=== PATIENT | female | born 1965 | race Asian ===

== ENCOUNTER 2019-03-09 13:04 | Emergency (ER) | payer OTHER, SELFPAY ==
[2019-03-09] VITALS (7 sets, daily range): BP systolic 111–126; BP diastolic 56–80; PULSE 51–58; RESP 14–19; TEMP 36.1; O2SAT 96–100; BMI 32.0
[2019-03-09 14:17] LABS: Add Manual Diff / Slide Review NO; Basophils Absolute Auto 0 /uL (0-100); Basophils Percent Auto 0.7 % (0-2); Eosinophils Absolute Auto 0 /uL (0-450); Eosinophils Percent Auto 0.6 % (2-4); Hematocrit 40.9 % (36-46); Hemoglobin 14.2 g/dL (12.0-16.0); Lymphocytes Absolute Auto 1000 /uL (1100-4500); Lymphocytes Percent Auto 16.7 % (25-40); Mean Corpuscular HGB Conc 34.6 % (30-36); Mean Corpuscular Hemoglobin 30.4 PG (26-34); Mean Corpuscular Volume 87.9 fL (80-100); Monocytes Absolute Auto 300 /uL (0-900); Monocytes Percent Auto 4.3 % (3-14); Neutrophils Absolute Auto 4900 /uL (1500-7000); Neutrophils Percent Auto 77.7 % (50-75); Platelet Count 283 X10^3/uL (150-400); Red Blood Cell Count 4.66 X10^6/uL (4.0-5.2); Red Cell Distribution Width 13.5 % (11.6-14.8); White Blood Cell Count 6.3 X10^3/uL (4.5-11.0)
[2019-03-09 14:27] LABS: Blood Urea Nitrogen 15 mg/dL (7-17); Calcium 9.5 mg/dL (8.4-10.2); Carbon Dioxide 28 mmol/L (22-32); Chloride 105 mmol/L (98-107); Estimated Glomerular Filt Rate > 60.0 mL/min (>60); Glucose 110 mg/dL (70-100); HEMOLYSIS < 15 (0-50); Potassium 4.1 mmol/L (3.4-5.1); Sodium 142 mmol/L (137-145)
[2019-03-09 14:40] LABS: Troponin I < 0.012 ng/mL (0.01-0.034)
[2019-03-09 15:09] LABS: Bacteria Urine None Seen; RBC Urine None Seen (0-5/HPF); WBC Urine None Seen (0-5/HPF)
[2019-03-09 15:12] LABS: Appearance Urine UA CLEAR; Bilirubin Urine UA NEGATIVE (NEGATIVE); Color Urine UA YELLOW; Glucose Urine UA NEGATIVE (Negative); Ketones Urine UA NEGATIVE (NEGATIVE); Leukocyte Esterase Urine UA NEGATIVE (NEGATIVE); Nitrite Urine UA NEGATIVE (Negative); Occult Blood Urine UA TRACE-INTACT (Negative); Protein Urine UA NEGATIVE (Negative); Urobilinogen Urine UA 0.2 E.U./dL (0.2); pH Urine UA 6.5 (4.5-8.0)
[2019-03-09 15:31] LABS: Culture Indicated Urine Cult Not Indicated
--- NOTE | 2019-03-09 16:27 | DI.RAD.S_ITS ---
PROCEDURE: XR CHEST 1V INDICATIONS: dizziness TECHNIQUE: One view of the chest was acquired. COMPARISON: None. FINDINGS: Surgical changes and devices: None. Lungs and pleura: Lungs are clear. No pleural effusions or pneumothorax. Mediastinum: Mediastinal contours appear normal. Heart size is normal. Bones and chest wall: No suspicious bony lesions. Overlying soft tissues appear unremarkable. IMPRESSION: Portable chest within normal limits. Dictated by: Aldo Hussein M.D. on 03/09/2019 at 16:08 Approved by: Aldo Hussein M.D. on 03/09/2019 at 16:08
--- NOTE | 2019-03-09 16:39 | ED.DIZZY ---
HPI - Dizziness General Chief Complaint: Dizziness Stated Complaint: States earthquake in head, vomitted twice Time Seen by Provider: 03/09/19 16:27 [facility] Social History Smoking Status: Never smoker Social History Smoking Status: Never smoker Exam Initial Vital Signs Initial Vital Signs: Vital Signs Temperature 97.0 F L 03/09/19 13:19 Pulse Rate 58 L 03/09/19 13:19 Respiratory Rate 18 03/09/19 13:19 Blood Pressure 126/79 03/09/19 13:19 Pulse Oximetry 100 03/09/19 13:19 Course Orders Ordered: ED Orders 03/09/19 14:10 Basic Metabolic Panel Stat Complete Blood Count AUTO DIFF Stat Troponin I Stat 03/09/19 15:05 UA Complete [Urinalysis and Microscopic] Stat 03/09/19 16:27 XR chest 1V Stat Vital Signs - 8 hr 03/09/19 13:19 03/09/19 14:41 03/09/19 15:35 Temperature 97.0 F L Pulse Rate 58 L 54 L 51 L Respiratory Rate 18 16 17 Blood Pressure 126/79 Blood Pressure [Left Arm] 124/61 113/56 L Pulse Oximetry 100 98 96 MDM - Dizziness Lab Data Result diagrams: 03/09/19 14:10 03/09/19 14:10 Lab Results 03/09/19 03/09/19 03/09/19 Range/Units 14:10 14:10 15:05 WBC 6.3 (4.5-11.0) X10^3/uL RBC 4.66 (4.0-5.2) X10^6/uL Hgb 14.2 (12.0-16.0) g/dL Hct 40.9 (36-46) % MCV 87.9 (80-100) fL MCH 30.4 (26-34) PG MCHC 34.6 (30-36) % RDW 13.5 (11.6-14.8) % Plt Count 283 (150-400) X10^3/uL Neut % (Auto) 77.7 H (50-75) % Lymph % (Auto) 16.7 L (25-40) % [place] % (Auto) 4.3 (3-14) % Eos % (Auto) 0.6 L (2-4) % Baso % (Auto) 0.7 (0-2) % Neut # (Auto) 4900 (5365-1262) /uL Lymph # (Auto) 1000 L (3130-9249) /uL [place] # (Auto) 300 (0-900) /uL Eos # (Auto) 0 (0-450) /uL Baso # (Auto) 0 (0-100) /uL Sodium 142 (137-145) mmol/L Potassium 4.1 (3.4-5.1) mmol/L Chloride 105 (98-107) mmol/L Carbon Dioxide 28 (22-32) mmol/L BUN 15 (7-17) mg/dL Creatinine 0.60 (0.52-1.04) mg/dL Estimated GFR > 60.0 (>60) mL/min BUN/Creatinine Ratio 25.0 H (6-22) Glucose 110 H (70-100) mg/dL Calcium 9.5 (8.4-10.2) mg/dL Troponin I < 0.012 (0.01-0.034) ng/mL Urine Color Yellow Urine Appearance Clear Urine pH 6.5 (4.5-8.0) Ur Specific [place] 1.020 (1.000-1.035) Urine Protein Negative (Negative) Urine Glucose (UA) Negative (Negative) g/dL Urine Ketones Negative (NEGATIVE) Urine Occult Blood Trace-intact (Negative) Urine Nitrate Negative (Negative) Urine Bilirubin Negative (NEGATIVE) Urine Urobilinogen 0.2 (0.2) E.U./dL Ur Leukocyte Esterase Negative (NEGATIVE) Urine RBC None seen (0-5/HPF) Urine WBC None seen (0-5/HPF) Urine Bacteria None seen (None) Ur Culture Indicated? Cult not indicated
--- NOTE | 2019-03-09 17:06 | ED.DIZZY ---
HPI - Dizziness <VAN Orta - Last Filed: 03/09/19 22:13> General Chief Complaint: Dizziness Stated Complaint: States earthquake in head, vomitted twice Time Seen by Provider: 03/09/19 16:27 Source: patient Mode of arrival: ambulatory Limitations: no limitations History of Present Illness HPI Narrative: 53-year-old healthy female with a history of migraines presents emergency department today complaining of sensations of the ?room spinning? for the past 2 weeks but was worse yesterday and today. States the spinning is worse when she moves her head or changes positions. Today it got bad enough that she vomited twice. She states that at 1 point today she had a little bit of blurred vision in both eyes, however she is feeling much better right now and does not have any visual changes. She denies headaches, neck pain, syncope, facial asymmetry, decreased hearing, sore throat, recent illness, chest pain, shortness of breath, abdominal pain, or change in stool patterns. Related Data Previous Rx's Medication Instructions Recorded meclizine 25 mg PO BID PRN #7 tab 03/09/19 Allergies Allergy/AdvReac Type Severity Reaction Status Date / Time No Known Drug Allergies Allergy Verified 03/09/19 17:06 Review of Systems <VAN Orta - Last Filed: 03/09/19 22:13> Review of Systems REVIEW OF SYSTEMS: GENERAL: Denies fever or chills. HENT: No head trauma, hearing loss or sore throat. EYES: Complains of an episode of blurry vision, see HPI. CARDIOVASCULAR: No chest pain or syncope. RESPIRATORY: No shortness of breath or cough. GASTROINTESTINAL: Complains of vomiting, see HPI. GENITOURINARY: No flank pain or dysuria. MUSCULOSKELETAL: No pain, weakness, or deformities. INTEGUMENTARY: No rash, lesions, or pruritus. NEURO: No numbness, tingling, memory loss, or confusion. Complains of the room spinning, see HPI. PSYCH: No behavior or mood changes. PFSH <VAN Orta - Last Filed: 03/09/19 22:13> Medical History Migraines (Acute) No significant medical problems (Acute) Social History Smoking Status: Never smoker Social History Smoking Status: Never smoker Exam <VAN Orta - Last Filed: 03/09/19 22:13> Initial Vital Signs Initial Vital Signs: Vital Signs Temperature 97.0 F L 03/09/19 13:19 Pulse Rate 58 L 03/09/19 13:19 Respiratory Rate 18 03/09/19 13:19 Blood Pressure 126/79 03/09/19 13:19 Pulse Oximetry 100 03/09/19 13:19 PHYSICAL EXAMINATION: GENERAL: Well groomed, alert, and cooperative. Answers questions promptly and appropriately. Vital signs noted. HENT: Normocephalic, atraumatic. Ear canals patent. TMs intact with crisp light reflex Oral mucosa is pink and moist. Oropharynx slightly erythematous EYES: PERRLA, EOMIs, conjunctiva pink, sclera white, no periorbital swelling. NECK: Full range of motion. No pain to palpation. CARDIOVASCULAR: S1 and S2 sounds normal. Regular rate and rhythm, no murmurs, clicks, or bruits. No pedal edema. RESPIRATORY: Normal respiratory rate, trachea midline, airway patent. No stridor, nasal flaring or accessory muscle use. Lungs are clear in all youssef without wheeze, rhonchi, or crackles. GASTROINTESTINAL: Bowel sounds normoactive. Abdomen is soft and non-tender. No organomegaly. MUSCULOSKELETAL: Normal gait and coordination. Equal tone and mass bilaterally. EXTREMITIES: CMS intact. Moves all extremities. SKIN: Warm, dry, soft, appropriate color for ethnicity. No lesions, rashes, or wounds. NEURO: Alert and Oriented X 3. CNII-XIII intact. NIH score 0. Good coordination. No ataxia, or sensory deficits, or cognitive issues. After administration of meclizine, patient was able to walk without difficulty or increased dizziness. Right-sided Hallpike's maneuver revealed increased symptoms and horizontal right ordered nystagmus. PSYCH: Appropriate affect and mood. <Mayelin Triana DO - Last Filed: 03/12/19 18:42> Initial Vital Signs Initial Vital Signs: Vital Signs Temperature 97.0 F L 03/09/19 13:19 Pulse Rate 58 L 03/09/19 13:19 Respiratory Rate 18 03/09/19 13:19 Blood Pressure 126/79 03/09/19 13:19 Pulse Oximetry 100 03/09/19 13:19 Course <VAN Orta - Last Filed: 03/09/19 22:13> Course Narrative: Patient's symptoms significantly improved after administration of meclizine, reported decreased ?room spinning ? and decreased nausea. Patient stated she would like to go home. Orders Ordered: Discontinued Medications Sodium Chloride (Normal Saline 0.9%) 1,000 mls @ 1,000 mls/hr IV BOLUS ONE Stop: 03/09/19 18:05 Last Admin: 03/09/19 17:21 Dose: Not Given Meclizine HCl (Antivert) 50 mg PO NOW ONE Stop: 03/09/19 17:07 Last Admin: 03/09/19 17:20 Dose: 50 mg Consultations Consultation #1: Patient staffed with Dr. triana. Vital Signs - 8 hr 03/09/19 14:41 03/09/19 15:35 03/09/19 16:30 Pulse Rate 54 L 51 L 58 L Respiratory Rate 16 17 15 Blood Pressure Blood Pressure [Left Arm] 124/61 113/56 L 115/72 Pulse Oximetry 98 96 98 03/09/19 17:00 03/09/19 18:00 03/09/19 18:29 Pulse Rate 58 L 51 L 55 L Respiratory Rate 14 16 19 Blood Pressure 113/73 Blood Pressure [Left Arm] 111/80 113/73 Pulse Oximetry 98 99 96 <Mayelin Triana DO - Last Filed: 03/12/19 18:42> Orders Ordered: Discontinued Medications Sodium Chloride (Normal Saline 0.9%) 1,000 mls @ 1,000 mls/hr IV BOLUS ONE Stop: 03/09/19 18:05 Last Admin: 03/09/19 17:21 Dose: Not Given Meclizine HCl (Antivert) 50 mg PO NOW ONE Stop: 03/09/19 17:07 Last Admin: 03/09/19 17:20 Dose: 50 mg Vital Signs - 8 hr 03/09/19 14:41 03/09/19 15:35 03/09/19 16:30 Pulse Rate 54 L 51 L 58 L Respiratory Rate 16 17 15 Blood Pressure Blood Pressure [Left Arm] 124/61 113/56 L 115/72 Pulse Oximetry 98 96 98 03/09/19 17:00 03/09/19 18:00 03/09/19 18:29 Pulse Rate 58 L 51 L 55 L Respiratory Rate 14 16 19 Blood Pressure 113/73 Blood Pressure [Left Arm] 111/80 113/73 Pulse Oximetry 98 99 96 MDM - Dizziness <VAN Orta - Last Filed: 03/09/19 22:13> Medical Records Attestation: I reviewed the patient's medical records. Lab Data Attestation: I reviewed the patient's lab results. Result diagrams: 03/09/19 14:10 03/09/19 14:10 Lab Results 03/09/19 03/09/19 03/09/19 Range/Units 14:10 14:10 15:05 WBC 6.3 (4.5-11.0) X10^3/uL RBC 4.66 (4.0-5.2) X10^6/uL Hgb 14.2 (12.0-16.0) g/dL Hct 40.9 (36-46) % MCV 87.9 (80-100) fL MCH 30.4 (26-34) PG MCHC 34.6 (30-36) % RDW 13.5 (11.6-14.8) % Plt Count 283 (150-400) X10^3/uL Neut % (Auto) 77.7 H (50-75) % Lymph % (Auto) 16.7 L (25-40) % [place] % (Auto) 4.3 (3-14) % Eos % (Auto) 0.6 L (2-4) % Baso % (Auto) 0.7 (0-2) % Neut # (Auto) 4900 (1767-2987) /uL Lymph # (Auto) 1000 L (6846-3047) /uL [place] # (Auto) 300 (0-900) /uL Eos # (Auto) 0 (0-450) /uL Baso # (Auto) 0 (0-100) /uL Sodium 142 (137-145) mmol/L Potassium 4.1 (3.4-5.1) mmol/L Chloride 105 (98-107) mmol/L Carbon Dioxide 28 (22-32) mmol/L BUN 15 (7-17) mg/dL Creatinine 0.60 (0.52-1.04) mg/dL Estimated GFR > 60.0 (>60) mL/min BUN/Creatinine Ratio 25.0 H (6-22) Glucose 110 H (70-100) mg/dL Calcium 9.5 (8.4-10.2) mg/dL Troponin I < 0.012 (0.01-0.034) ng/mL Urine Color Yellow Urine Appearance Clear Urine pH 6.5 (4.5-8.0) Ur Specific [place] 1.020 (1.000-1.035) Urine Protein Negative (Negative) Urine Glucose (UA) Negative (Negative) g/dL Urine Ketones Negative (NEGATIVE) Urine Occult Blood Trace-intact (Negative) Urine Nitrate Negative (Negative) Urine Bilirubin Negative (NEGATIVE) Urine Urobilinogen 0.2 (0.2) E.U./dL Ur Leukocyte Esterase Negative (NEGATIVE) Urine RBC None seen (0-5/HPF) Urine WBC None seen (0-5/HPF) Urine Bacteria None seen (None) Ur Culture Indicated? Cult not indicated Imaging Data Chest Xr : Radiologist's impression: [place] [address] XRay Report Signed Patient: Ghislaine Maya VMR#: [id number] : 1965Acct:[id number] Age/Sex: 53 / FDate of Service: 03/09/19 Loc: ED Accession Number: [id number] Procedure: XR chest 1V Ordering Provider: Mayelin Triana D.O. PROCEDURE: XR CHEST 1V INDICATIONS: dizziness TECHNIQUE: One view of the chest was acquired. COMPARISON: None. FINDINGS: Surgical changes and devices: None. Lungs and pleura: Lungs are clear. No pleural effusions or pneumothorax. Mediastinum: Mediastinal contours appear normal. Heart size is normal. Bones and chest wall: No suspicious bony lesions. Overlying soft tissues appear unremarkable. IMPRESSION: Portable chest within normal limits. Dictated by: Aldo Hussein M.D. on 03/09/2019 at 16:08 Approved by: Aldo Hussein M.D. on 03/09/2019 at 16:08 [facility] Narrative Medical decision making narrative: Suspect peripheral vertigo (less likely central vertigo due to tumor or brain bleed)aAs patient's symptoms decreased with administration of meclizine, labs were within normal limits, she exhibited a normal neuro exam, and Ken-Hallpike maneuver was positive. Strict return precautions were given to patient and follow-up instructions discussed. Less likely cardiac due to negative lab work, description of symptoms and exam. <Mayelin Triana, DO - Last Filed: 03/12/19 18:42> Lab Data Lab Results 03/09/19 03/09/19 03/09/19 Range/Units 14:10 14:10 15:05 WBC 6.3 (4.5-11.0) X10^3/uL RBC 4.66 (4.0-5.2) X10^6/uL Hgb 14.2 (12.0-16.0) g/dL Hct 40.9 (36-46) % MCV 87.9 (80-100) fL MCH 30.4 (26-34) PG MCHC 34.6 (30-36) % RDW 13.5 (11.6-14.8) % Plt Count 283 (150-400) X10^3/uL Neut % (Auto) 77.7 H (50-75) % Lymph % (Auto) 16.7 L (25-40) % [place] % (Auto) 4.3 (3-14) % Eos % (Auto) 0.6 L (2-4) % Baso % (Auto) 0.7 (0-2) % Neut # (Auto) 4900 (2859-2778) /uL Lymph # (Auto) 1000 L (3652-2940) /uL [place] # (Auto) 300 (0-900) /uL Eos # (Auto) 0 (0-450) /uL Baso # (Auto) 0 (0-100) /uL Sodium 142 (137-145) mmol/L Potassium 4.1 (3.4-5.1) mmol/L Chloride 105 (98-107) mmol/L Carbon Dioxide 28 (22-32) mmol/L BUN 15 (7-17) mg/dL Creatinine 0.60 (0.52-1.04) mg/dL Estimated GFR > 60.0 (>60) mL/min BUN/Creatinine Ratio 25.0 H (6-22) Glucose 110 H (70-100) mg/dL Calcium 9.5 (8.4-10.2) mg/dL Troponin I < 0.012 (0.01-0.034) ng/mL Urine Color Yellow Urine Appearance Clear Urine pH 6.5 (4.5-8.0) Ur Specific [place] 1.020 (1.000-1.035) Urine Protein Negative (Negative) Urine Glucose (UA) Negative (Negative) g/dL Urine Ketones Negative (NEGATIVE) Urine Occult Blood Trace-intact (Negative) Urine Nitrate Negative (Negative) Urine Bilirubin Negative (NEGATIVE) Urine Urobilinogen 0.2 (0.2) E.U./dL Ur Leukocyte Esterase Negative (NEGATIVE) Urine RBC None seen (0-5/HPF) Urine WBC None seen (0-5/HPF) Urine Bacteria None seen (None) Ur Culture Indicated? Cult not indicated Discharge Plan Departure Patient Disposition: Home Clinical Impression: Vertigo Discharge Date/Time: 03/09/19 18:30 Interventions: ED Discharge Assessment Last Done: 03/09/19 18:29 Instructions: DI for Vertigo Activity Restrictions/Additional Instructions: Thank you for entrusting me with your care today. As discussed, your labs are within normal limits. Your neuro exam did not reveal any neurological deficits. It is possible that your symptoms are caused by vertigo, a prescribed you medication to help with this, however this can make you drowsy at times so do not drive with this medication. Please follow up with her primary care provider in the next week for further evaluation. Return to the emergency department if you experience facial droop, severe headaches, change of behavior, slurred speech, syncope, increased symptoms, chest pain, shortness of breath, or severe abdominal pain. Prescriptions: New meclizine 25 mg tablet 25 mg PO BID PRN (Reason: dizziness) Qty: 7 RF: 0 Referrals: Geovanni Carrillo MD [Primary Care Provider] - <Mayelin Triana DO - Last Filed: 03/12/19 18:42> Cosign ED Attending Cosignature Attestation: I was immediately available in the department for consultation. This documentation has been reviewed and I agree with assessment and plan. Supervised by Mayelin Triana DO
--- NOTE | 2019-03-09 17:09 | ED_ITS ---
HPI - Dizziness <VAN Orta - Last Filed: 03/09/19 22:13> General Chief Complaint: Dizziness Stated Complaint: States earthquake in head, vomitted twice Time Seen by Provider: 03/09/19 16:27 Source: patient Mode of arrival: ambulatory Limitations: no limitations History of Present Illness HPI Narrative: 53-year-old healthy female with a history of migraines presents emergency department today complaining of sensations of the ?room spinning? for the past 2 weeks but was worse yesterday and today. States the spinning is worse when she moves her head or changes positions. Today it got bad enough that she vomited twice. She states that at 1 point today she had a little bit o f blurred vision in both eyes, however she is feeling much better right now and does not have any visual changes. She denies headaches, neck pain, syncope, facial asymmetry, decreased hearing, sore throat, recent illness, chest pain, shortness of breath, abdominal pain, or change in stool patterns. Related Data Previous Rx's Medication Instructions Recorded meclizine 25 mg PO BID PRN #7 tab 03/09/19 Allergies Allergy/AdvReac Type Severity Reaction Status Date / Time No Known Drug Allergies Allergy Verified 03/09/19 17:06 Review of Systems <VAN Orta - Last Filed: 03/09/19 22:13> Review of Systems REVIEW OF SYSTEMS: GENERAL: Denies fever or chills. HENT: No head trauma, hearing loss or sore throat. EYES: Complains of an episode of blurry vision, see HPI. CARDIOVASCULAR: No chest pain or syncope. RESPIRATORY: No shortness of breath or cough. GASTROINTESTINAL: Complains of vomiting, see HPI. GENITOURINARY: No flank pain or dysuria. MUSCULOSKELETAL: No pain, weakness, or deformities. INTEGUMENTARY: No rash, lesions, or pruritus. NEURO: No numbness, tingling, memory loss, or confusion. Complains of the room spinning, see HPI. PSYCH: No behavior or mood changes. PFSH <VAN Orta - Last Filed: 03/09/19 22:13> Medical History Migraines (Acute) No significant medical problems (Acute) Social History Smoking Status: Never smoker Social History Smoking Status: Never smoker Exam <VAN Orta - Last Filed: 03/09/19 22:13> Initial Vital Signs Initial Vital Signs: Vital Signs Temperature 97.0 F L 03/09/19 13:19 Pulse Rate 58 L 03/09/19 13:19 Respiratory Rate 18 03/09/19 13:19 Blood Pressure 126/79 03/09/19 13:19 Pulse Oximetry 100 03/09/19 13:19 PHYSICAL EXAMINATION: GENERAL: Well groomed, alert, and cooperative. Answers questions promptly and appropriately. Vital signs noted. HENT: Normocephalic, atraumatic. Ear canals patent. TMs intact with crisp light reflex Oral mucosa is pink and moist. Oropharynx slightly erythematous EYES: PERRLA, EOMIs, conjunctiva pink, sclera white, no periorbital swelling. NECK: Full range of motion. No pain to palpation. CARDIOVASCULAR: S1 and S2 sounds normal. Regular rate and rhythm, no murmurs, clicks, or bruits. No pedal edema. RESPIRATORY: Normal respiratory rate, trachea midline, airway patent. No stridor, nasal flaring or accessory muscle use. Lungs are clear in all youssef without wheeze, rhonchi, or crackles. GASTROINTESTINAL: Bowel sounds normoactive. Abdomen is soft and non-tender. No organomegaly. MUSCULOSKELETAL: Normal gait and coordination. Equal tone and mass bilaterally. EXTREMITIES: CMS intact. Moves all extremities. SKIN: Warm, dry, soft, appropriate color for ethnicity. No lesions, rashes, or wounds. NEURO: Alert and Oriented X 3. CNII-XIII intact. NIH score 0. Good coordination. No ataxia, or sensory deficits, or cognitive issues. After administration of meclizine, patient was able to walk without difficulty or increased dizziness. Right-sided Hallpike's maneuver revealed increased symptoms and horizontal right ordered nystagmus. PSYCH: Appropriate affect and mood. <Mayelin Triana DO - Last Filed: 03/12/19 18:42> Initial Vital Signs Initial Vital Signs: Vital Signs Temperature 97.0 F L 03/09/19 13:19 Pulse Rate 58 L 03/09/19 13:19 Respiratory Rate 18 03/09/19 13:19 Blood Pressure 126/79 07/13/19 13:19 Pulse Oximetry 100 03/09/19 13:19 Course <VAN Orta - Last Filed: 03/09/19 22:13> Course Narrative: Patient's symptoms significantly improved after administration of meclizine, reported decreased ?room spinning ? and decreased nausea. Patient stated she would like to go home. Orders Ordered: Discontinued Medications Sodium Chloride (Normal Saline 0.9%) 1,000 mls @ 1,000 mls/hr IV BOLUS ONE Stop: 03/09/19 18:05 Last Admin: 03/09/19 17:21 Dose: Not Given Meclizine HCl (Antivert) 50 mg PO NOW ONE Stop: 03/09/19 17:07 Last Admin: 03/09/19 17:20 Dose: 50 mg Consultations Consultation #1: Patient staffed with Dr. triana. Vital Signs - 8 hr 03/09/19 14:41 03/09/19 15:35 03/09/19 16:30 Pulse Rate 54 L 51 L 58 L Respiratory Rate 16 17 15 Blood Pressure Blood Pressure [Left Arm] 124/61 113/56 L 115/72 Pulse Oximetry 98 96 98 03/09/19 17:00 03/09/19 18:00 03/09/19 18:29 Pulse Rate 58 L 51 L 55 L Respiratory Rate 14 16 19 Blood Pressure 113/73 Blood Pressure [Left Arm] 111/80 113/73 Pulse Oximetry 98 99 96 <Mayelin Triana DO - Last Filed: 03/12/19 18:42> Orders Ordered: Discontinued Medications Sodium Chloride (Normal Saline 0.9%) 1,000 mls @ 1,000 mls/hr IV BOLUS ONE Stop: 03/09/19 18:05 Last Admin: 03/09/19 17:21 Dose: Not Given Meclizine HCl (Antivert) 50 mg PO NOW ONE Stop: 03/09/19 17:07 Last Admin: 03/09/19 17:20 Dose: 50 mg Vital Signs - 8 hr 03/09/19 14:41 03/09/19 15:35 03/09/19 16:30 Pulse Rate 54 L 51 L 58 L Respiratory Rate 16 17 15 Blood Pressure Blood Pressure [Left Arm] 124/61 113/56 L 115/72 Pulse Oximetry 98 96 98 03/09/19 17:00 03/09/19 18:00 03/09/19 18:29 Pulse Rate 58 L 51 L 55 L Respiratory Rate 14 16 19 Blood Pressure 113/73 Blood Pressure [Left Arm] 111/80 113/73 Pulse Oximetry 98 99 96 MDM - Dizziness <VAN Orta - Last Filed: 03/09/19 22:13> Medical Records Attestation: I reviewed the patient's medical records. Lab Data Attestation: I reviewed the patient's lab results. Result diagrams: 03/09/19 14:10 03/09/19 14:10 Lab Results 03/09/19 03/09/19 03/09/19 Range/Units 14:10 14:10 15:05 WBC 6.3 (4.5-11.0) X10^3/uL RBC 4.66 (4.0-5.2) X10^6/uL Hgb 14.2 (12.0-16.0) g/dL Hct 40.9 (36-46) % MCV 87.9 (80-100) fL MCH 30.4 (26-34) PG MCHC 34.6 (30-36) % RDW 13.5 (11.6-14.8) % Plt Count 283 (150-400) X10^3/uL Neut % (Auto) 77.7 H (50-75) % Lymph % (Auto) 16.7 L (25-40) % [place] % (Auto) 4.3 (3-14) % Eos % (Auto) 0.6 L (2-4) % Baso % (Auto) 0.7 (0-2) % Neut # (Auto) 4900 (7288-8878) /uL Lymph # (Auto) 1000 L (9678-1298) /uL [place] # (Auto) 300 (0-900) /uL Eos # (Auto) 0 (0-450) /uL Baso # (Auto) 0 (0-100) /uL Sodium 142 (137-145) mmol/L Potassium 4.1 (3.4-5.1) mmol/L Chloride 105 (98-107) mmol/L Carbon Dioxide 28 (22-32) mmol/L BUN 15 (7-17) mg/dL Creatinine 0.60 (0.52-1.04) mg/dL Estimated GFR > 60.0 (>60) mL/min BUN/Creatinine Ratio 25.0 H (6-22) Glucose 110 H (70-100) mg/dL Calcium 9.5 (8.4-10.2) mg/dL Troponin I < 0.012 (0.01-0.034) ng/mL Urine Color Yellow Urine Appearance Clear Urine pH 6.5 (4.5-8.0) Ur Specific Cades 1.020 (1.000-1.035) Urine Protein Negative (Negative) Urine Glucose (UA) Negative (Negative) g/dL Urine Ketones Negative (NEGATIVE) Urine Occult Blood Trace-intact (Negative) Urine Nitrate Negative (Negative) Urine Bilirubin Negative (NEGATIVE) Urine Urobilinogen 0.2 (0.2) E.U./dL Ur Leukocyte Esterase Negative (NEGATIVE) Urine RBC None seen (0-5/HPF) Urine WBC None seen (0-5/HPF) Urine Bacteria None seen (None) Ur Culture Indicated? Cult not indicated Imaging Data Chest Xr : Radiologist's impression: [place] [address] XRay Report Signed Patient: Ghislaine Maya VMR#: [id number] : 1965Acct:[id number] Age/Sex: 53 / FDate of Service: 03/09/19 Loc: ED Accession Number: [id number] Procedure: XR chest 1V Ordering Provider: Mayelin Triana D.O. PROCEDURE: XR CHEST 1V INDICATIONS: dizziness TECHNIQUE: One view of the chest was acquired. COMPARISON: None. FINDINGS: Surgical changes and devices: None. Lungs and pleura: Lungs are clear. No pleural effusions or pneumothorax. Mediastinum: Mediastinal contours appear normal. Heart size is normal. Bones and chest wall: No suspicious bony lesions. Overlying soft tissues appear unremarkable. IMPRESSION: Portable chest within normal limits. Dictated by: Aldo Hussein M.D. on 03/09/2019 at 16:08 Approved by: Aldo Hussein M.D. on 03/09/2019 at 16:08 [facility] Narrative Medical decision making narrative: Suspect peripheral vertigo (less likely central vertigo due to tumor or brain bleed)aAs patient's symptoms decreased with administration of meclizine, labs were within normal limits, she exhibited a normal neuro exam, and Lonedell-Hallpike maneuver was positive. Strict return precautions were given to patient and follow-up instructions discussed. Less likely cardiac due to negative lab work, description of symptoms and exam. <Mayelin Triana, DO - Last Filed: 03/12/19 18:42> Lab Data Lab Results 03/09/19 03/09/19 03/09/19 Range/Units 14:10 14:10 15:05 WBC 6.3 (4.5-11.0) X10^3/uL RBC 4.66 (4.0-5.2) X10^6/uL Hgb 14.2 (12.0-16.0) g/dL Hct 40.9 (36-46) % MCV 87.9 (80-100) fL MCH 30.4 (26-34) PG MCHC 34.6 (30-36) % RDW 13.5 (11.6-14.8) % Plt Count 283 (150-400) X10^3/uL Neut % (Auto) 77.7 H (50-75) % Lymph % (Auto) 16.7 L (25-40) % [place] % (Auto) 4.3 (3-14) % Eos % (Auto) 0.6 L (2-4) % Baso % (Auto) 0.7 (0-2) % Neut # (Auto) 4900 (7474-7799) /uL Lymph # (Auto) 1000 L (0487-4330) /uL [place] # (Auto) 300 (0-900) /uL Eos # (Auto) 0 (0-450) /uL Baso # (Auto) 0 (0-100) /uL Sodium 142 (137-145) mmol/L Potassium 4.1 (3.4-5.1) mmol/L Chloride 105 (98-107) mmol/L Carbon Dioxide 28 (22-32) mmol/L BUN 15 (7-17) mg/dL Creatinine 0.60 (0.52-1.04) mg/dL Estimated GFR > 60.0 (>60) mL/min BUN/Creatinine Ratio 25.0 H (6-22) Glucose 110 H (70-100) mg/dL Calcium 9.5 (8.4-10.2) mg/dL Troponin I < 0.012 (0.01-0.034) ng/mL Urine Color Yellow Urine Appearance Clear Urine pH 6.5 (4.5-8.0) Ur Specific Cades 1.020 (1.000-1.035) Urine Protein Negative (Negative) Urine Glucose (UA) Negative (Negative) g/dL Urine Ketones Negative (NEGATIVE) Urine Occult Blood Trace-intact (Negative) Urine Nitrate Negative (Negative) Urine Bilirubin Negative (NEGATIVE) Urine Urobilinogen 0.2 (0.2) E.U./dL Ur Leukocyte Esterase Negative (NEGATIVE) Urine RBC None seen (0-5/HPF) Urine WBC None seen (0-5/HPF) Urine Bacteria None seen (None) Ur Culture Indicated? Cult not indicated Discharge Plan Departure Patient Disposition: Home Clinical Impression: Vertigo Discharge Date/Time: 03/09/19 18:30 Interventions: ED Discharge Assessment Last Done: 03/09/19 18:29 Instructions: DI for Vertigo Activity Restrictions/Additional Instructions: Thank you for entrusting me with your care today. As discussed, your labs are within normal limits. Your neuro exam did not reveal any neurological deficits. It is possible that your symptoms are caused by vertigo, a prescribed you medication to help with this, however this can make you drowsy at times so do not drive with this medication. Please follow up with her primary care provider in the next week for further evaluation. Return to the emergency department if you experience facial droop, severe headaches, change of behavior, slurred speech, syncope, increased symptoms, chest pain, shortness of breath, or severe abdominal pain. Prescriptions: New meclizine 25 mg tablet 25 mg PO BID PRN (Reason: dizziness) Qty: 7 RF: 0 Referrals: Geovanni Carrillo MD [Primary Care Provider] - <Mayelin Triana DO - Last Filed: 03/12/19 18:42> Cosign ED Attending Cosignature Attestation: I was immediately available in the department for consultation. This documentation has been reviewed and I agree with assessment and plan. Supervised by Mayelin Triana DO
[2019-03-09] MEDS: MECLIZINE HCL 12.5 MG TABLET 50 MG PO (17:20)
== END 2019-03-09 18:30 | disposition home or self-care (01) ==
PROVIDERS: Emergency Medicine; Emergency Provider Nurse Practitioner; PCP Internal Medicine Cardiovascular Disease
DX: R42 Dizziness and giddiness (principal)
CPT/HCPCS: 71045; 80048; 81001; 84484; 85025; 93005; 99283; 99284

== ENCOUNTER → 2020-02-20 10:54 | Outpatient (CLI) | payer OTHER, SELFPAY ==
--- NOTE | 2020-02-20 10:55 | DI.CT.S_ITS ---
PROCEDURE: CT ABDOMEN PELVIS WO/W CON INDICATIONS: Personal history of other diseases of urinary syst TECHNIQUE: Optional 5 mm thick noncontrast images acquired from the diaphragm to the symphysis pubis. After the administration of intravenous contrast, 5 mm thick images acquired from the diaphragm to the symphysis pubis after a 10-minute delay. 2 mm thick coronal and sagittal reformats were then performed of the kidneys and ureters. For radiation dose reduction, the following was used: automated exposure control, adjustment of mA and/or kV according to patient size. COMPARISON: None. FINDINGS: Image quality: Excellent. Lung bases: Lung bases are clear. Heart size is normal. Urinary system: Both kidneys are normal in size, without hydronephrosis or nephrolithiasis on pre-contrast images. No perinephric fat stranding. There is normal bilateral renal enhancement. Renal calyces appear normal in morphology when filled with contrast. Opacified portions of both ureters demonstrate normal caliber. Bladder wall thickness is normal. No calcified bladder stones. Other solid organs: Liver is normal in size and enhancement. Gallbladder appears normal. Biliary system is non dilated. Pancreas enhances normally. Spleen is normal in size and enhancement. No adrenal nodules. Peritoneum and bowel: Bowel loops demonstrate normal wall thickness and caliber. No free fluid or air. Nodes and vessels: No retroperitoneal or mesenteric adenopathy by size criteria. Aorta and inferior vena cava are normal in size. Abdominal wall: No ventral hernias. Pelvis: No pathologic free pelvic fluid. No inguinal hernias or adenopathy. Note is made of a large masslike structure involving the uterus which appears to compress and deviate the bladder leftward, without associated hydronephrosis or hydroureter. This structure measures up to 6.9 x 6.5 x 7.0 cm and has heterogeneous internal radiodensity. Bones: No suspicious bony lesions. No vertebral body compression fractures. IMPRESSION: The large uterine mass measuring up to 7 cm in diameter displaces and compresses the bladder to the degree that is shifted leftward within the lower pelvis, and statistically this finding likely represents a large uterine fibroid. CT scanning may underestimate the complexity of a uterine mass and for this reason pelvic ultrasound is recommended. An endometrial mass or uterine malignant neoplasm also could produce this appearance. Overall, a definite source of hematuria is not found. Dictated by: Davi Shepprad M.D. on 02/20/2020 at 12:43 Approved by: Davi Sheppard M.D. on 02/20/2020 at 12:48
== END ==
PROVIDERS: PCP Internal Medicine Cardiovascular Disease; Referring Provider Urology; Visit Provider Urology
DX: N85.9 Noninflammatory disorder of uterus, unspecified (principal); R31.9 Hematuria, unspecified; Z87.448 Personal history of other diseases of urinary system
CPT/HCPCS: 74178

== ENCOUNTER → 2020-12-07 07:45 | Outpatient (CLI) | payer OTHER, SELFPAY ==
[2020-12-07 08:13] LABS: Add Manual Diff / Slide Review NO; Basophils Absolute Auto 100 /uL (0-100); Basophils Percent Auto 1.3 % (0-2); Eosinophils Absolute Auto 200 /uL (0-450); Eosinophils Percent Auto 3.4 % (2-4); Hematocrit 39.8 % (36-46); Hemoglobin 13.6 g/dL (12.0-16.0); Lymphocytes Absolute Auto 1700 /uL (1100-4500); Lymphocytes Percent Auto 37.7 % (25-40); Mean Corpuscular HGB Conc 34.2 % (30-36); Mean Corpuscular Volume 87.6 fL (80-100); Monocytes Absolute Auto 400 /uL (0-900); Monocytes Percent Auto 9.3 % (3-14); Neutrophils Absolute Auto 2100 /uL (1500-7000); Neutrophils Percent Auto 48.3 % (50-75); Platelet Count 244 X10^3/uL (150-400); Red Blood Cell Count 4.54 X10^6/uL (4.0-5.2); Red Cell Distribution Width 12.9 % (11.6-14.8); White Blood Cell Count 4.4 X10^3/uL (4.5-11.0)
[2020-12-07 08:14] LABS: BUN Creatinine Ratio 21.3 (6-22); Blood Urea Nitrogen 13 mg/dL (7-17); Calcium 9.3 mg/dL (8.4-10.2); Carbon Dioxide 27 mmol/L (22-32); Chloride 106 mmol/L (98-107); Cholesterol 229 mg/dL (140-199); Estimated Glomerular Filt Rate > 60.0 mL/min (>60); Glucose 100 mg/dL (70-100); HDL Cholesterol 41 mg/dL (40-60); HEMOLYSIS < 15 (0-50); LDL Cholesterol Calculated 160 mg/dL (<100); Sodium 140 mmol/L (137-145); Triglycerides 138 mg/dL (35-150)
== END ==
PROVIDERS: PCP Family Medicine; Referring Provider Family Medicine; Visit Provider Family Medicine
DX: Z13.220 Encounter for screening for lipoid disorders (principal)
CPT/HCPCS: 36415; 80048; 80061; 85025

== ENCOUNTER → 2021-04-08 09:23 | Outpatient (CLI) | payer OTHER, SELFPAY ==
--- NOTE | 2021-04-08 09:25 | DI.US.S_ITS ---
PROCEDURE: US PELVIC COMPLETE INDICATIONS: FIBROID TECHNIQUE: Real-time scanning was performed of the pelvic organs, with image documentation. Additional endovaginal scanning was necessary due to incomplete visualization of the adnexal and endometrial structures by transabdominal scanning. COMPARISON: [facility], US, US PELVIC COMPLETE, 09/02/2020, 9:14. FINDINGS: Uterus: Uterus is normal in size at 9.0 x 5.5 x 7.0 cm. The endometrium is not well visualized secondary to intramural fibroid with shadowing measuring 6.4 x 5.0 x 6.3 cm. Ovaries: Normal ovaries bilaterally. No adnexal masses seen. Other: No pathologic free abdominal or pelvic fluid. IMPRESSION: 6.4 cm intramural fibroid and the endometrial complex is suboptimally visualized. Dictated by: Scout OLMSTEAD Interpreted: New Edward MD on 04/08/2021 at 13:22 Approved by: New Edward M.D. on 04/09/2021 at 9:44
== END ==
PROVIDERS: PCP Family Medicine; Referring Provider Specialist; Visit Provider Specialist
DX: D25.1 Intramural leiomyoma of uterus (principal)
CPT/HCPCS: 76830; 76856

== ENCOUNTER → 2021-04-12 13:02 | Outpatient (CLI) | payer OTHER, SELFPAY | PROVIDERS: PCP Family Medicine; Visit Provider Physician Assistant | DX: R30.9 Painful micturition, unspecified (principal) | CPT/HCPCS: 87086 ==

== ENCOUNTER → 2021-11-09 11:13 | Outpatient (CLI) | payer OTHER, SELFPAY ==
--- NOTE | 2021-11-09 11:15 | DI.RAD.S_ITS ---
PROCEDURE: XR KNEE LT 3V INDICATIONS: Fall TECHNIQUE: 3 views of the knee were acquired. COMPARISON: None. FINDINGS: Bones: No visible fracture. Mild joint space loss and spurring in the medial and patellofemoral compartments. Prominent anterior tibial tubercle. Trace lateral patellar subluxation. Otherwise normal bone alignment. Soft tissues: No joint effusion. No suspicious soft tissue calcifications. IMPRESSION: 1. No visible fractures. 2. Mild medial and patellofemoral compartment osteoarthritic changes. Dictated by: Tara Saldivar M.D. on 11/09/2021 at 12:10 Approved by: Tara Saldivar M.D. on 11/09/2021 at 12:11
--- NOTE | 2021-11-09 11:15 | DI.RAD.S_ITS ---
PROCEDURE: XR HAND LT MIN 3V INDICATIONS: Fall TECHNIQUE: 3 views of the hand(s) acquired. COMPARISON: None. FINDINGS: Bones: No fractures or dislocations. Carpal bones are normally aligned. No suspicious bony lesions. Soft tissues: No suspicious soft tissue calcifications. IMPRESSION: Intact left hand. Dictated by: Tara Saldivar M.D. on 11/09/2021 at 12:11 Approved by: Tara Saldivar M.D. on 11/09/2021 at 12:12
--- NOTE | 2021-11-09 11:15 | DI.RAD.S_ITS ---
PROCEDURE: XR WRIST LT MIN 3V INDICATIONS: Fall TECHNIQUE: 4 views of the wrist were acquired. COMPARISON: None. FINDINGS: Bones: No fractures or dislocations. No suspicious bony lesions. Scaphoid view: The scaphoid is intact. Soft tissues: No suspicious soft tissue calcifications. IMPRESSION: No acute radiographic findings. If pain persists, followup imaging in 5-7 days is recommended to exclude occult fracture. Dictated by: Any Arango M.D. on 11/09/2021 at 11:54 Approved by: Any Arango M.D. on 11/09/2021 at 11:55
== END ==
PROVIDERS: PCP Family Medicine; Referring Provider Student in an Organized Health Care Education/Training Program; Visit Provider Student in an Organized Health Care Education/Training Program
DX: S69.92XA Unspecified injury of left wrist, hand and finger(s), initial encounter (principal); S89.92XA Unspecified injury of left lower leg, initial encounter; W01.0XXA Fall on same level from slipping, tripping and stumbling without subsequent striking against object, initial encounter
CPT/HCPCS: 73110; 73130; 73562

== ENCOUNTER → 2022-05-24 13:14 | Outpatient (CLI) | payer OTHER, SELFPAY ==
--- NOTE | 2022-05-24 13:14 | DI.MG.S_ITS ---
BILATERAL DIGITAL SCREENING MAMMOGRAM 3D/2D WITH CAD: 05/24/2022 CLINICAL: Routine screening. Comparison is made to exams dated: 02/22/2019 mammogram, 02/22/2018 mammogram, and 01/19/2017 mammogram - outside location. There are scattered areas of fibroglandular density in both breasts (category b / 25%-50% glandular tissue). Current study was also evaluated with a Computer Aided Detection (CAD) system. No significant masses, calcifications, or other findings are seen in either breast. There has been no significant interval change. IMPRESSION: NEGATIVE There is no mammographic evidence of malignancy. A 1 year screening mammogram is recommended. Based on the Tyrer Cuzick model (a risk assessment model) the patient's lifetime risk is 6.4% and her 10 year risk is 2.5%. According to the ACR, ACS, and NCCN guidelines, an annual breast MRI exam along with mammogram is recommended if the patient's lifetime risk is 20% or greater. This exam was interpreted at Station ID: [id number]. NOTE: For mammograms, a report in lay terms will be sent to the patient. Approximately 15% of breast malignancies will not be visualized mammographically. In the management of a palpable breast mass, a negative mammogram must not discourage biopsy of a clinically suspicious lesion. Electronically Signed By: Lc oswald/radha:05/24/2022 14:45:47 letter sent: Normal Exam ACR BI-RADS Category 1: Negative [id number]
== END ==
PROVIDERS: PCP Family Medicine; Referring Provider Family Medicine; Visit Provider Family Medicine
DX: Z12.31 Encounter for screening mammogram for malignant neoplasm of breast (principal)
CPT/HCPCS: 77063; 77067

== ENCOUNTER → 2022-09-14 13:04 | Outpatient (CLI) | payer OTHER, SELFPAY ==
[2022-09-14 13:38] LABS: Add Manual Diff / Slide Review NO; Basophils Absolute Auto 100 /uL (0-100); Eosinophils Absolute Auto 200 /uL (0-450); Eosinophils Percent Auto 2.7 % (2-4); Hematocrit 39.9 % (36-46); Hemoglobin 13.7 g/dL (12.0-16.0); Lymphocytes Absolute Auto 2000 /uL (1100-4500); Lymphocytes Percent Auto 35.9 % (25-40); Mean Corpuscular HGB Conc 34.4 % (30-36); Mean Corpuscular Volume 87.4 fL (80-100); Monocytes Absolute Auto 500 /uL (0-900); Monocytes Percent Auto 8.2 % (3-14); Neutrophils Absolute Auto 2900 /uL (1500-7000); Neutrophils Percent Auto 52.2 % (50-75); Platelet Count 273 X10^3/uL (150-400); Red Blood Cell Count 4.57 X10^6/uL (4.0-5.2); Red Cell Distribution Width 13.4 % (11.6-14.8); White Blood Cell Count 5.6 X10^3/uL (4.5-11.0)
[2022-09-14 14:01] LABS: Alanine Aminotransferase 35 IU/L (<35); Alkaline Phosphatase 88 U/L (38-126); Aspartate Aminotransferase 33 IU/L (14-36); BUN Creatinine Ratio 21.3 (6-22); Bilirubin Total 0.8 mg/dL (0.2-1.3); Blood Urea Nitrogen 13 mg/dL (7-17); Calcium 9.4 mg/dL (8.4-10.2); Carbon Dioxide 28 mmol/L (22-32); Chloride 102 mmol/L (98-107); Cholesterol 268 mg/dL (140-199); Estimated Glomerular Filt Rate > 60 mL/min (>60); Glucose 86 mg/dL (70-100); HDL Cholesterol 52 mg/dL (40-60); HEMOLYSIS < 15 (0-50); LDL Cholesterol Calculated 186 mg/dL (<100); Potassium 4.2 mmol/L (3.4-5.1); Sodium 139 mmol/L (137-145); Triglycerides 151 mg/dL (35-150)
[2022-09-14 16:27] LABS: Vitamin D 25 Hydroxy (D3) 19.6 ng/mL (30.0-100.0)
[2022-09-16 16:42] LABS: Albumin 4.4 g/dL (3.5-5.0); Albumin Globulin Ratio 1.2 (1.0-2.8); Globulin 3.6 g/dL (1.7-4.1)
== END ==
PROVIDERS: PCP Family Medicine; Referring Provider Family Medicine; Visit Provider Family Medicine
DX: D25.1 Intramural leiomyoma of uterus (principal); E78.00 Pure hypercholesterolemia, unspecified
CPT/HCPCS: 36415; 80053; 80061; 82306; 85025

== ENCOUNTER → 2022-10-18 09:44 | Outpatient (CLI) | payer OTHER, SELFPAY ==
--- NOTE | 2022-10-18 09:45 | DI.CT.S_ITS ---
PROCEDURE: CT ABDOMEN PELVIS W CON INDICATIONS: Lt quad abd pain TECHNIQUE: After the administration of intravenous contrast, axial sections acquired from the lung bases to the pubic symphysis. Coronal and sagittal reformats were performed. For radiation dose reduction, the following was used: automated exposure control, adjustment of mA and/or kV according to patient size. COMPARISON: [facility], CT, CT ABDOMEN PELVIS WO/W CON, 02/20/2020, 11:08. FINDINGS: Image quality: Excellent. Lung bases: Unremarkable. Heart: Mild cardiomegaly. ABDOMEN: Liver: Unremarkable. Gallbladder: Gallbladder wall is mildly prominent. No gallstones. No gallbladder distension. Biliary ducts: Unremarkable. Pancreas: Unremarkable. Spleen: Unremarkable. Adrenal Glands: Unremarkable. Kidneys and Ureters: Unremarkable. Stomach and Bowel: Mild diverticulosis. Otherwise unremarkable. Peritoneum: No abnormal intraperitoneal fluid. No free air. Ventral Wall: No hernias. Abdominal Nodes: No retroperitoneal or mesenteric adenopathy by size criteria. Vessels: Aorta and inferior vena cava are normal in size. PELVIS: Pelvic Organs: Again noted is a large uterine fundal fibroid. It is developing dystrophic calcifications, a common occurrence in postmenopausal females. Is also slightly smaller. On coronal image 73/5, it previously measured 6.5 x 7.2 cm. On current coronal image 28/4, it measures 6.8 x 6.2 cm. Maximum AP dimension on sagittal imaging was previously 7.3 cm and is now 6.3 cm. 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 Bladder: Unremarkable. Pelvic Nodes: No enlarged lymph nodes. Miscellaneous: No hernias are seen. Bones: Lumbar degenerative change. No lytic or blastic bony lesions. No compression fractures. IMPRESSION: 1. Known large fibroid is decreasing in size and developing benign calcifications. 2. Mild diverticulosis. 3. No evidence of acute abdominal process. Dictated by: Prabhjot Suazo M.D. on 10/18/2022 at 11:25 Approved by: Prabhjot Suazo M.D. on 10/18/2022 at 11:38
== END ==
PROVIDERS: PCP Family Medicine; Referring Provider Family Medicine; Visit Provider Family Medicine
DX: D25.9 Leiomyoma of uterus, unspecified (principal); K57.90 Diverticulosis of intestine, part unspecified, without perforation or abscess without bleeding; R10.9 Unspecified abdominal pain; I51.7 Cardiomegaly
CPT/HCPCS: 74177; Q9967